=== PATIENT | male | born 1940 | race African-American/Black ===

== ENCOUNTER 2017-01-31 03:11 | Emergency (ER) | payer MEDICARE, BC ==
[~2017-01-31] VITALS: Ht 170.2 cm; Wt 64.0 kg
[~2017-01-31 03:11] MED LIST: ATOR40TA70 PO; CLON0.1T PO; HYDR-3927 PO; HYDR500C18 PO; NITR50CA2 PO; TRIA1CAP6 PO
[2017-01-31 05:06] VITALS: BP 154/86
== END 2017-01-31 06:31 | disposition home or self-care (01) ==
LOC: ER 03:40
DX: R33.9 Retention of urine, unspecified (principal); I10 Essential (primary) hypertension; E78.00 Pure hypercholesterolemia, unspecified; Z98.62 Peripheral vascular angioplasty status; Z79.899 Other long term (current) drug therapy
CPT/HCPCS: 51702; 99284

== ENCOUNTER 2017-03-13 16:30 | Emergency (ER) | payer MEDICARE, BC ==
[~2017-03-13] VITALS: Ht 175.3 cm; Wt 86.0 kg
[~2017-03-13 16:30] MED LIST changes: +NITR50CA PO; -NITR50CA2 PO
[2017-03-13 17:12] VITALS: BP 132/73
[2017-08-17] MEDS ORDERED: TAMS0.4C31 PO (08:35)
[2017-08-17] MEDS ORDERED: ASPI-1159 PO (08:35)
[2017-08-17] MEDS ORDERED: CLON0.1T PO (08:35)
[2017-08-17] MEDS ORDERED: HYDR-522 PO (08:35)
== END 2017-03-13 18:15 | disposition home or self-care (01) ==
LOC: ER 16:48
DX: T83.098A Other mechanical complication of other urinary catheter, initial encounter (principal); I25.10 Atherosclerotic heart disease of native coronary artery without angina pectoris; E78.00 Pure hypercholesterolemia, unspecified; I10 Essential (primary) hypertension; Z98.61 Coronary angioplasty status; Z85.46 Personal history of malignant neoplasm of prostate; Y84.6 Urinary catheterization as the cause of abnormal reaction of the patient, or of later complication, without mention of misadventure at the time of the procedure; Y92.018 Other place in single-family (private) house as the place of occurrence of the external cause
CPT/HCPCS: 51702; 99284

== ENCOUNTER 2017-03-13 20:53 | Emergency (ER) | payer MEDICARE, BC ==
[~2017-03-13] VITALS: Ht 175.3 cm; Wt 86.0 kg
[~2017-03-13 20:53] MED LIST changes: -NITR50CA PO; +NITR50CA2 PO
[2017-03-13 22:39] VITALS: BP 155/79
== END 2017-03-13 23:07 | disposition home or self-care (01) ==
LOC: ER 22:52
DX: T83.098A Other mechanical complication of other urinary catheter, initial encounter (principal); I10 Essential (primary) hypertension; Z85.46 Personal history of malignant neoplasm of prostate; E78.00 Pure hypercholesterolemia, unspecified; Z90.79 Acquired absence of other genital organ(s); Y84.6 Urinary catheterization as the cause of abnormal reaction of the patient, or of later complication, without mention of misadventure at the time of the procedure; Y92.018 Other place in single-family (private) house as the place of occurrence of the external cause
CPT/HCPCS: 51702; 99284

== ENCOUNTER 2017-03-27 09:17 | Emergency (ER) | payer MEDICARE, BC ==
[~2017-03-27] VITALS: Ht 175.3 cm; Wt 86.5 kg
[~2017-03-27 09:17] MED LIST changes: +NITR50CA PO; -NITR50CA2 PO
[2017-03-27] MEDS ORDERED: SODIUM CHLORIDE 0.9% 1,000 ML IV ONE (09:59)
[2017-03-27 10:23] LABS: BASOPHILS % 0.9 % (0.0-2.0); EOSINOPHILS % 0.6 % (0.0-5.0); HEMATOCRIT. 35.1 % (42.0-52.0); HEMOGLOBIN. 11.9 g/dL (14.0-18.0); LYMPHOCYTES % 24.6 % (20.0-50.0); MEAN CORPUSCULAR HEMOGLOBIN 36.9 pg (28.0-32.0); MEAN CORPUSCULAR VOLUME 109.1 fL (80.0-94.0); MEAN PLATELET VOLUME 6.5 fl (7.4-10.4); MONOCYTES % 6.4 % (2.0-8.0); NEUTROPHILS % 67.5 % (40.0-76.0); PLATELET 503 x1000/uL (130-400); RED BLOOD CELL COUNT 3.22 mill/uL (4.7-6.1); RED CELL DISTRIBUTION WIDTH 14.9 % (11.6-14.6)
[2017-03-27 10:27] LABS: CHLORIDE 106 mEq/L (98-107)
[2017-03-27 10:34] LABS: CARBON DIOXIDE 27 mEq/L (21-32)
[2017-03-27 10:47] LABS: CLARITY URINE CLOUDY (CLEAR); COLOR URINE YELLOW (YELLOW); KETONES URINE NEGATIVE (NEGATIVE); LEUKOCYTE ESTERASE URINE 3+ (NEGATIVE); NITRITE URINE NEGATIVE (NEGATIVE); OCCULT BLOOD URINE 2+ (NEGATIVE); PH URINE 6.5 (4.5-8.0); PROTEIN URINE 2+ (NEGATIVE); SPECIFIC GRAVITY URINE 1.013 (1.005-1.030); UROBILINOGEN URINE 0.2 E.U./dL (0.2-1.0)
[2017-03-27 11:50] VITALS: BP 143/76
[2017-08-17] MEDS ORDERED: CLON0.1T PO (08:35)
[2017-08-17] MEDS ORDERED: TAMS0.4C31 PO (08:35)
[2017-08-17] MEDS ORDERED: ASPI-1159 PO (08:35)
[2017-08-17] MEDS ORDERED: HYDR-522 PO (08:35)
== END 2017-03-27 11:53 | disposition home or self-care (01) ==
LOC: ER 09:52
DX: Z43.6 Encounter for attention to other artificial openings of urinary tract (principal); B37.49 Other urogenital candidiasis; I10 Essential (primary) hypertension; E78.00 Pure hypercholesterolemia, unspecified; B96.89 Other specified bacterial agents as the cause of diseases classified elsewhere
CPT/HCPCS: 36415; 51702; 80048; 81001; 85025; 87086; 96360; 99284; J7030; A4315

== ENCOUNTER 2017-04-07 00:27 | Emergency (ER) | payer MEDICARE, BC ==
[~2017-04-07] VITALS: Ht 175.3 cm; Wt 87.0 kg
[~2017-04-07 00:27] MED LIST changes: -HYDR500C18 PO; -TRIA1CAP6 PO
[2017-04-07 03:30] VITALS: BP 153/80
[2017-08-17] MEDS ORDERED: TAMS0.4C31 PO (08:35)
[2017-08-17] MEDS ORDERED: ASPI-1159 PO (08:35)
[2017-08-17] MEDS ORDERED: CLON0.1T PO (08:35)
[2017-08-17] MEDS ORDERED: HYDR-522 PO (08:35)
== END 2017-04-07 03:44 | disposition home or self-care (01) ==
LOC: ER 03:08
DX: R33.9 Retention of urine, unspecified (principal); I10 Essential (primary) hypertension; E78.00 Pure hypercholesterolemia, unspecified; Z98.890 Other specified postprocedural states; Z98.62 Peripheral vascular angioplasty status
CPT/HCPCS: 51702; 99284; A4315

== ENCOUNTER 2017-04-10 09:37 | Emergency (ER) | payer MEDICARE, BC ==
[~2017-04-10] VITALS: Ht 175.3 cm; Wt 86.0 kg
[2017-04-10 09:40] VITALS: BP 156/81
[2017-04-10 11:57] LABS: CARBON DIOXIDE 31 mEq/L (21-32); CHLORIDE 109 mEq/L (98-107)
[2017-04-10 12:38] LABS: CLARITY URINE CLEAR (CLEAR); COLOR URINE YELLOW (YELLOW); KETONES URINE NEGATIVE (NEGATIVE); LEUKOCYTE ESTERASE URINE 2+ (NEGATIVE); NITRITE URINE NEGATIVE (NEGATIVE); OCCULT BLOOD URINE 2+ (NEGATIVE); PROTEIN URINE 2+ (NEGATIVE); SPECIFIC GRAVITY URINE 1.017 (1.005-1.030); UROBILINOGEN URINE 0.2 E.U./dL (0.2-1.0)
[2017-04-10] MEDS ORDERED: LIDOCAINE HCL 1% 20ML VIAL (Pyxis) INJ INFIL ONE (13:00)
[2017-04-10] MEDS ORDERED: CEFTRIAXONE SODIUM 1 G/VIAL IM ONE (13:00)
[2017-08-17] MEDS ORDERED: ASPI-1159 PO (08:35)
[2017-08-17] MEDS ORDERED: HYDR-522 PO (08:35)
[2017-08-17] MEDS ORDERED: CLON0.1T PO (08:35)
[2017-08-17] MEDS ORDERED: TAMS0.4C31 PO (08:35)
== END 2017-04-10 15:02 | disposition home or self-care (01) ==
LOC: ER 11:22
DX: T83.098A Other mechanical complication of other urinary catheter, initial encounter (principal); N39.0 Urinary tract infection, site not specified; Z85.46 Personal history of malignant neoplasm of prostate; I11.9 Hypertensive heart disease without heart failure; Z98.890 Other specified postprocedural states; Z98.61 Coronary angioplasty status; Y84.6 Urinary catheterization as the cause of abnormal reaction of the patient, or of later complication, without mention of misadventure at the time of the procedure; Y92.018 Other place in single-family (private) house as the place of occurrence of the external cause
CPT/HCPCS: 36415; 51702; 80053; 81001; 87086; 99284; J0696; J3490; A4315

== ENCOUNTER 2017-04-18 18:53 | Emergency (ER) | payer MEDICARE, BC ==
[~2017-04-18] VITALS: Ht 175.3 cm; Wt 86.0 kg
[2017-04-18] MEDS ORDERED: SODIUM CHLORIDE 0.9% 1,000 ML IV ONE (20:03)
[2017-04-18] MEDS ORDERED: ACETAMINOPHEN 325MG TABLET PO ONE (20:15)
[2017-04-18 20:38] LABS: BASOPHILS % 1.5 % (0.0-2.0); EOSINOPHILS % 1.8 % (0.0-5.0); HEMATOCRIT. 33.8 % (42.0-52.0); HEMOGLOBIN. 11.5 g/dL (14.0-18.0); LYMPHOCYTES % 27.4 % (20.0-50.0); MEAN CORPUSCULAR VOLUME 108.9 fL (80.0-94.0); MEAN PLATELET VOLUME 6.3 fl (7.4-10.4); MONOCYTES % 9.5 % (2.0-8.0); NEUTROPHILS % 59.8 % (40.0-76.0); PLATELET 536 x1000/uL (130-400); RED BLOOD CELL COUNT 3.11 mill/uL (4.7-6.1)
[2017-04-18 20:39] LABS: CHLORIDE 105 mEq/L (98-107)
[2017-04-18 20:41] LABS: CARBON DIOXIDE 27 mEq/L (21-32)
[2017-04-18 21:01] LABS: CLARITY URINE CLEAR (CLEAR); COLOR URINE YELLOW (YELLOW); KETONES URINE NEGATIVE (NEGATIVE); LEUKOCYTE ESTERASE URINE 3+ (NEGATIVE); NITRITE URINE NEGATIVE (NEGATIVE); OCCULT BLOOD URINE 3+ (NEGATIVE); PH URINE 6.5 (4.5-8.0); PROTEIN URINE 1+ (NEGATIVE); SPECIFIC GRAVITY URINE 1.009 (1.005-1.030); UROBILINOGEN URINE 0.2 E.U./dL (0.2-1.0)
[2017-04-18 22:00] VITALS: BP 135/82
[2017-08-17] MEDS ORDERED: TAMS0.4C31 PO (08:35)
[2017-08-17] MEDS ORDERED: HYDR-522 PO (08:35)
[2017-08-17] MEDS ORDERED: CLON0.1T PO (08:35)
[2017-08-17] MEDS ORDERED: ASPI-1159 PO (08:35)
== END 2017-04-18 22:30 | disposition home or self-care (01) ==
LOC: ER 22:30
PROC: 0T9 Urinary System, Drainage (ICD-10-PCS; principal; 2017-04-18)
DX: N39.0 Urinary tract infection, site not specified (principal); R33.9 Retention of urine, unspecified; E78.00 Pure hypercholesterolemia, unspecified; I10 Essential (primary) hypertension; I25.2 Old myocardial infarction; Z85.46 Personal history of malignant neoplasm of prostate; Z98.62 Peripheral vascular angioplasty status
CPT/HCPCS: 36415; 51702; 80048; 81001; 85025; 87086; 87106; 99284; J7030; A4315

== ENCOUNTER → 2017-10-25 | Outpatient (CLI) | payer MEDICARE, BC ==
[~2017-10-25] MED LIST changes: +ASPI-1159 PO; +HYDR-522 PO; +TAMS0.4C31 PO
== END | disposition home or self-care (01) ==
LOC: CT 08:49
PROVIDERS: ATTEND Urology
DX: N28.1 Cyst of kidney, acquired (principal); K57.30 Diverticulosis of large intestine without perforation or abscess without bleeding; M47.896 Other spondylosis, lumbar region
CPT/HCPCS: 74176

== ENCOUNTER → 2017-11-04 | Outpatient (CLI) | payer MEDICARE, BC | END | disposition home or self-care (01) | LOC: RAD 11:37 | PROVIDERS: ATTEND Neurological Surgery | DX: M50.30 Other cervical disc degeneration, unspecified cervical region (principal); R07.89 Other chest pain | CPT/HCPCS: 71046; 72040; 72100 ==

== ENCOUNTER → 2017-11-21 | Outpatient (CLI) | payer MEDICARE, BC | END | disposition home or self-care (01) | LOC: MRI 09:39 | PROVIDERS: ATTEND Neurological Surgery | DX: M48.061 Spinal stenosis, lumbar region without neurogenic claudication (principal); M51.27 Other intervertebral disc displacement, lumbosacral region; M51.36 Other intervertebral disc degeneration, lumbar region | CPT/HCPCS: 72148 ==

== ENCOUNTER 2019-05-15 05:24 | Day surgery (SDC) | payer MEDICARE, BC ==
[~2019-05-15] VITALS: Ht 175.3 cm; Wt 88.5 kg
[~2019-05-15 05:24] MED LIST changes: -ASPI-1159 PO; +ASPI-1393 PO
[2019-05-15] MEDS ORDERED: LACTATED RINGERS 1,000 ML IV SCH (06:15)
[2019-05-15] MEDS ORDERED: MIDAZOLAM HCL 2 MG/2 ML VIAL ONE (07:25)
[2019-05-15] MEDS ORDERED: PROPOFOL 200MG/20ML VIAL IV ONE ×2 (07:25→07:39)
[2019-05-15] MEDS ORDERED: FENTANYL CITRATE/PF 50MCG/ML 2ML VIAL ONE (07:25)
[2019-05-15] MEDS ORDERED: ONDANSETRON HCL 4MG/2ML INJ ONE (07:39)
[2019-05-15] MEDS ORDERED: DEXAMETHASONE 4MG/ML 1ML VIAL ONE (07:39)
[2019-05-15] MEDS ORDERED: LABETALOL 5MG/ML SYR 20 MG/4 ML SYRINGE IV PRN (08:00)
[2019-05-15] MEDS ORDERED: MEPERIDINE HCL/PF 25MG/ML CPJ IV PRN (08:00)
[2019-05-15] MEDS ORDERED: ONDANSETRON HCL 4MG/2ML INJ IV PRN (08:00)
[2019-05-15] MEDS ORDERED: HYDROMORPHONE HCL/PF 2MG/ML CPJ IV PRN (08:00)
[2019-05-15] MEDS ORDERED: AMLO5TAB88 PO (09:08)
[2019-05-22 13:14] LABS: AMMONIUM ACID URATE 30 % (.); CALC OXALATE MONOHYDRATE 20 % (.); CALCIUM PHOSPHATE 35 % (.); CALCULI COLOR Tan (.); CALCULI COMMENT 2 Note: (.); CALCULI WEIGHT 4338.7 mg (.); MAGNESIUM AMMONIUM PHOSPHATE 15 % (.)
== END 2019-05-15 11:23 | disposition home or self-care (01) ==
LOC: OR 05:24
PROVIDERS: ATTEND Urology
DX: N21.0 Calculus in bladder (principal); N32.0 Bladder-neck obstruction; N39.0 Urinary tract infection, site not specified; R33.9 Retention of urine, unspecified; Z79.899 Other long term (current) drug therapy; Z85.46 Personal history of malignant neoplasm of prostate; Z92.3 Personal history of irradiation; Z82.49 Family history of ischemic heart disease and other diseases of the circulatory system; Z80.8 Family history of malignant neoplasm of other organs or systems
CPT/HCPCS: 52317; 82360; 88300; J1100; J2250; J2405; J2704; J3010

== ENCOUNTER → 2020-03-24 | Outpatient (CLI) | payer MEDICARE, BC ==
[~2020-03-24] MED LIST changes: +AMLO5TAB88 PO; -ASPI-1393 PO; +ASPI-1497 PO; -CLON0.1T PO; -NITR50CA PO; -TAMS0.4C31 PO
== END | disposition home or self-care (01) ==
LOC: LAB 10:55
PROVIDERS: ATTEND Urology
DX: Z01.818 Encounter for other preprocedural examination (principal); Z11.59 Encounter for screening for other viral diseases
CPT/HCPCS: C9803; U0003

== ENCOUNTER 2020-03-26 05:42 | Day surgery (SDC) | payer MEDICARE, BC ==
[~2020-03-26] VITALS: Ht 175.3 cm; Wt 84.4 kg
[~2020-03-26 05:42] MED LIST changes: +LACTATED RINGERS 1,000 ML IV SCH
[2020-03-26 07:35] LABS: CLARITY URINE CLOUDY (CLEAR); COLOR URINE YELLOW (YELLOW); KETONES URINE NEGATIVE (NEGATIVE); LEUKOCYTE ESTERASE URINE 3+ (NEGATIVE); NITRITE URINE POSITIVE (NEGATIVE); OCCULT BLOOD URINE 1+ (NEGATIVE); PH URINE 7.5 (4.5-8.0); PROTEIN URINE 2+ (NEGATIVE); SPECIFIC GRAVITY URINE 1.015 (1.005-1.030); UROBILINOGEN URINE 0.2 E.U./dL (0.2-1.0)
[2020-03-26] MEDS ORDERED: FENTANYL CITRATE/PF 50MCG/ML 2ML VIAL ONE (07:37)
[2020-03-26] MEDS ORDERED: MIDAZOLAM HCL 2 MG/2 ML VIAL ONE (07:38)
[2020-03-26] MEDS ORDERED: ONDANSETRON HCL 4MG/2ML INJ ONE (07:38)
[2020-03-26] MEDS ORDERED: SUCCINYLCHOLINE CHLORIDE 200MG/10ML IV ONE (07:38)
[2020-03-26] MEDS ORDERED: METOCLOPRAMIDE HCL 10MG/2ML VIAL ONE (07:38)
[2020-03-26] MEDS ORDERED: PROPOFOL 200MG/20ML VIAL IV ONE (07:38)
[2020-03-26] MEDS ORDERED: GLYCOPYRROLATE 0.2 MG/ML 2ML VIAL ONE (07:38)
[2020-03-26] MEDS ORDERED: LIDOCAINE HCL/PF 1% 10 MG/ML 5ML VIAL ONE (07:38)
[2020-03-26] MEDS ORDERED: GENTAMICIN SULF 40MG/ML 2ML VIAL ONE (07:49)
[2020-03-26] MEDS ORDERED: LABETALOL HCL 5MG/ML VIAL 20ML IV ONE (08:37)
[2020-03-26] MEDS ORDERED: ETOMIDATE 2MG/ML 10ML VIAL IV ONE (08:37)
[2020-03-26] MEDS ORDERED: SODIUM CHLORIDE 0.9% 1,000 ML IV ONE (09:21)
[2020-03-26] MEDS ORDERED: HYDROMORPHONE HCL/PF 2MG/ML CPJ IV PRN (09:30)
[2020-03-26] MEDS ORDERED: ONDANSETRON HCL 4MG/2ML INJ IV PRN (09:30)
[2020-03-26] MEDS ORDERED: MEPERIDINE HCL/PF 25MG/ML CPJ IV PRN (09:30)
[2020-03-26] MEDS ORDERED: MORPHINE SULFATE 2 MG/ML CPJ (NOT FOR IM USE) IV PRN (09:30)
[2020-03-26] MEDS ORDERED: HYDR500C18 PO (09:48)
[2020-03-26] MEDS ORDERED: METH1TAB33 PO (09:48)
[2020-03-26] MEDS ORDERED: HYDROMORPHONE HCL/PF 2MG/ML CPJ ONE (10:49)
== END 2020-03-26 11:55 | disposition home or self-care (01) ==
LOC: OR 05:42
PROVIDERS: ATTEND Urology
DX: N21.0 Calculus in bladder (principal); N39.0 Urinary tract infection, site not specified; E78.00 Pure hypercholesterolemia, unspecified; J44.9 Chronic obstructive pulmonary disease, unspecified; I12.9 Hypertensive chronic kidney disease with stage 1 through stage 4 chronic kidney disease, or unspecified chronic kidney disease; E11.22 Type 2 diabetes mellitus with diabetic chronic kidney disease; E11.42 Type 2 diabetes mellitus with diabetic polyneuropathy; N18.9 Chronic kidney disease, unspecified; F41.9 Anxiety disorder, unspecified; Z85.46 Personal history of malignant neoplasm of prostate; Z79.899 Other long term (current) drug therapy; Z98.890 Other specified postprocedural states; Z79.82 Long term (current) use of aspirin; Z79.84 Long term (current) use of oral hypoglycemic drugs; Z82.49 Family history of ischemic heart disease and other diseases of the circulatory system
CPT/HCPCS: 52317; 81003; 82360; 87077; 87086; 87186; 88300; C1769; J0330; J1170; J1580; J2250; J2405; J2704; J2765; J3010; J3490

== ENCOUNTER 2021-08-06 17:03 | Inpatient (IN) | payer MEDICARE, BC ==
[~2021-08-06] VITALS: Ht 185.4 cm; Wt 81.6 kg
[~2021-08-06 17:03] MED LIST changes: +HYDR500C18 PO; -LACTATED RINGERS 1,000 ML IV SCH; +METH1TAB33 PO
[2021-08-06 19:27] LABS: HEMATOCRIT. 27.2 % (42.0-52.0); HEMOGLOBIN. 9.3 g/dL (14.0-18.0); MEAN PLATELET VOLUME 7.2 fl (7.4-10.4); PLATELET 249 x1000/uL (130-400); RED BLOOD CELL COUNT 2.08 mill/uL (4.7-6.1); RED CELL DISTRIBUTION WIDTH 17.1 % (11.6-14.6)
[2021-08-06 19:36] LABS: CHLORIDE 111 mEq/L (98-107)
[2021-08-06 19:39] LABS: ETHANOL BLOOD < 10 mg/dL
[2021-08-06 19:44] LABS: CREATINE KINASE 191 IU/L (39-308)
[2021-08-06 20:00] LABS: PLATELET ESTIMATE NORMAL
[2021-08-06 21:07] LABS: BG BASE EXCESS -0.5 mmol/L (-2.0-2.0); BG DEOXYHEMOGLOBIN 5.4 % (0.0-5.0); BG FRACTION INSPIRED OXYGEN 21; BG HCO3 ACT 23.6 mmol/L (22.0-26.0); BG METHEMOGLOBIN 0.2 % (0.0-1.5); BG OXYGEN SATURATION 94.6 % (92.0-98.5); BG OXYHEMOGLOBIN 94.4 % (94.0-97.0); BG PH 7.423 (7.350-7.450); BG PO2 80.3 mmHg (75.0-100.0); BG SAMPLE SITE LEFT RADIAL; BG TOTAL HEMOGLOBIN 11.4 g/dL (12.0-18.0); BG VENT MODE ROOM AIR
[2021-08-06] MEDS ORDERED: DEXAMETHASONE 10 MG/ML VIAL IV ONE (22:30)
[2021-08-07 04:00] VITALS: BP 158/73
[2021-08-07] MEDS ORDERED: CLONIDINE 0.1MG TABLET PO PRN (05:00)
[2021-08-07] MEDS ORDERED: ACETAMINOPHEN 325MG TABLET PO PRN (05:00)
[2021-08-07] MEDS ORDERED: MAGNESIUM/ALUMINUM HYDROXIDE/SIMETHICONE 30ML UDC PO PRN (05:00)
[2021-08-07] MEDS ORDERED: GUAIFENESIN 200MG/10ML SUGAR FREE UDC PO PRN (05:00)
[2021-08-07] MEDS ORDERED: ONDANSETRON HCL 4MG/2ML INJ IV PRN (05:00)
[2021-08-07] MEDS ORDERED: HYDROCODONE/ACETAMINOPHEN 5/325MG TABLET PO PRN (05:00)
[2021-08-07] MEDS ORDERED: DOCUSATE SODIUM 100MG CAPSULE PO PRN (05:00)
[2021-08-07] MEDS ORDERED: NALOXONE HCL 0.4 MG/ML 1ML VIAL IV PRN (05:15)
[2021-08-07] MEDS: ENOXAPARIN 40MG/0.4ML SYR SUBCUT SCH (09:37)
[2021-08-07] MEDS: AMLODIPINE 10MG TABLET PO SCH (09:38)
[2021-08-07] MEDS: HYDROXYUREA 500MG CAPSULE PO SCH (10:50)
[2021-08-07 16:26] LABS: BASOPHILS % 0.1 % (0.0-2.0); HEMATOCRIT. 26.8 % (42.0-52.0); HEMOGLOBIN. 9.6 g/dL (14.0-18.0); LYMPHOCYTES % 15.1 % (20.0-50.0); MEAN CORPUSCULAR HEMOGLOBIN 46.2 pg (28.0-32.0); MEAN CORPUSCULAR VOLUME 129.1 fL (80.0-94.0); MEAN PLATELET VOLUME 6.8 fl (7.4-10.4); MONOCYTES % 4.4 % (2.0-8.0); NEUTROPHILS % 80.4 % (40.0-76.0); PLATELET 276 x1000/uL (130-400); RED BLOOD CELL COUNT 2.08 mill/uL (4.7-6.1); RED CELL DISTRIBUTION WIDTH 18.3 % (11.6-14.6)
[2021-08-07 20:00] VITALS: BP 113/66
[2021-08-07] MEDS: ATORVASTATIN CALCIUM 40MG TABLET PO SCH (21:06)
[2021-08-08] VITALS: BP 117/71
[2021-08-08 04:00] VITALS: BP 109/61
[2021-08-08 06:02] LABS: CHLORIDE 106 mEq/L (98-107)
[2021-08-08 08:00] VITALS: BP 134/57
[2021-08-08 08:28] LABS: BASOPHILS % 0.1 % (0.0-2.0); EOSINOPHILS % 0.1 % (0.0-5.0); HEMATOCRIT. 23.9 % (42.0-52.0); HEMOGLOBIN. 8.3 g/dL (14.0-18.0); LYMPHOCYTES % 25.7 % (20.0-50.0); MEAN CORPUSCULAR HEMOGLOBIN 45.5 pg (28.0-32.0); MEAN CORPUSCULAR VOLUME 130.4 fL (80.0-94.0); MEAN PLATELET VOLUME 6.3 fl (7.4-10.4); MONOCYTES % 7.8 % (2.0-8.0); NEUTROPHILS % 66.3 % (40.0-76.0); PLATELET 222 x1000/uL (130-400); RED BLOOD CELL COUNT 1.83 mill/uL (4.7-6.1); RED CELL DISTRIBUTION WIDTH 18.3 % (11.6-14.6)
[2021-08-08] MEDS: HYDROXYUREA 500MG CAPSULE PO SCH (08:40)
[2021-08-08] MEDS: ENOXAPARIN 40MG/0.4ML SYR SUBCUT SCH (08:40)
[2021-08-08] MEDS: AMLODIPINE 10MG TABLET PO SCH (08:41)
[2021-08-08 12:00] VITALS: BP 108/62
[2021-08-08 16:00] VITALS: BP 115/67
[2021-08-08 20:00] VITALS: BP 108/53
[2021-08-08] MEDS: ATORVASTATIN CALCIUM 40MG TABLET PO SCH (22:51)
[2021-08-09 00:31] VITALS: BP 113/68
[2021-08-09 04:38] VITALS: BP 113/64
[2021-08-09 08:00] VITALS: BP 118/51
[2021-08-09] MEDS: AMLODIPINE 10MG TABLET PO SCH (09:29)
[2021-08-09] MEDS: ENOXAPARIN 40MG/0.4ML SYR SUBCUT SCH (09:30)
[2021-08-09] MEDS: HYDROXYUREA 500MG CAPSULE PO SCH (10:46)
[2021-08-09 10:54] VITALS: BP 113/72
== END 2021-08-09 12:55 | disposition home health service (06) | DRG 552 ==
LOC: ER 17:03 → 6EST 23:20 → ENRESERV 23:55 → CANBEDREQ 08-07 00:30 → ER 08-07 03:38 → CANBEDREQ 08-07 04:10
PROVIDERS: ADMIT Hospitalist; ATTEND Hospitalist
DX: M48.061 Spinal stenosis, lumbar region without neurogenic claudication (principal); G95.89 Other specified diseases of spinal cord; N39.0 Urinary tract infection, site not specified; R53.1 Weakness; I10 Essential (primary) hypertension; D63.8 Anemia in other chronic diseases classified elsewhere; E78.00 Pure hypercholesterolemia, unspecified; M48.02 Spinal stenosis, cervical region; R32 Unspecified urinary incontinence; M25.78 Osteophyte, vertebrae; M47.812 Spondylosis without myelopathy or radiculopathy, cervical region; Z79.899 Other long term (current) drug therapy; Z87.440 Personal history of urinary (tract) infections; Z85.46 Personal history of malignant neoplasm of prostate; I25.2 Old myocardial infarction; Z79.82 Long term (current) use of aspirin; Z90.79 Acquired absence of other genital organ(s); W18.30XA Fall on same level, unspecified, initial encounter
CPT/HCPCS: 36415; 36600; 71045; 72141; 72146; 72148; 72170; 80053; 80320; 82140; 82375; 82550; 82805; 82962; 83605; 85025; 93005; 93970; 97162; 99285; J1100; J1650; G0480

== ENCOUNTER 2022-12-19 10:53 | Emergency (ER) | payer MEDICARE, BC ==
[~2022-12-19] VITALS: Ht 177.8 cm; Wt 78.0 kg
[2022-12-19 10:57] VITALS: BP 123/70
== END 2022-12-19 15:23 | disposition home or self-care (01) ==
LOC: ER 11:03
DX: S70.01XA Contusion of right hip, initial encounter (principal); W18.39XA Other fall on same level, initial encounter; Y93.89 Activity, other specified; Y92.89 Other specified places as the place of occurrence of the external cause; Y99.8 Other external cause status; E78.00 Pure hypercholesterolemia, unspecified; I10 Essential (primary) hypertension; I25.2 Old myocardial infarction
CPT/HCPCS: 73502; 99283